=== PATIENT | female | born 1990 | race Caucasian/White ===

== ENCOUNTER 2018-01-29 17:22 | Emergency (ER) | payer MEDICAID ==
[~2018-01-29 17:22] MED LIST: Tuberculin 5 TU/0.1 mL UD ID ONE
--- NOTE | 2018-01-29 17:57 | ED Physician Chart ---
ED Chief Complaint/HPI - Patient Information Date Seen:: 01/29/18 Time Seen:: 17:45 Chief Complaint:: cough History of Present Illness:: Patient's developed cough, burning chest pain and diaphoresis at work today. Patient's cough is productive of a small amount of dark green sputum. Patient' s brother was diagnosed as having pneumonia last night and discharged from the emergency department with a prescription for antibiotics. Patient has never received influenza vaccination. Allergies:: Allergies Allergy/AdvReac Type Severity Reaction Status Date / Time No Known Allergies Allergy Verified 01/29/18 17:51 Historian:: Patient Review:: Nurse's Note Reviewed ED Review of Systems - Review of Systems General/Constitutional: Chills Skin: No skin lesions Head: No headache Eyes: No loss of vision ENT: No earache Neck: No neck pain Cardio Vascular: Chest pain Pulmonary: Cough, Sputum GI: No nausea, No vomiting, No diarrhea G/U: No dysuria Musculoskeletal: No bone or joint pain Endocrine: No polyuria Psychiatric: No prior psych history Hematopoietic: No bruising Allergic/Immuno: No urticaria Neurological: No syncope Family Medical History - Family Member Mother History Unknown: Yes ED Labs/Radiology/EKG Results - Lab Results Results: Abnormal Lab Results 01/29/18 18:07 Influenza A (Rapid) NEG FOR INF A Influenza B (Rapid) NEG FOR INF B ED Septic Shock - . Is Septic Shock (SBP<90, OR Lactate>4 mmol\L) present?: No ED Reassessment (Disposition) - Reassessment Reassessment Condition:: Unchanged - Diagnosis Diagnosis:: Acute viral syndrome - Aftercare/Follow up Instructions Aftercare/Follow-Up Instructions:: Refer to Discharge Instructions - Patient Disposition Discharge/Transfer:: Home Condition at Disposition:: Stable, Unchanged
[2018-01-29 18:36] LABS: INF A SCREEN NEG FOR INF A
[2018-01-29 18:37] LABS: INF B SCREEN NEG FOR INF B
== END 2018-01-29 19:00 | disposition home or self-care (01) ==
LOC: ER 17:22
DX: B34.9 Viral infection, unspecified (principal); R07.89 Other chest pain
CPT/HCPCS: 87804-TC; Z7502